=== PATIENT | female | born 1985 | race Two or more races ===

== ENCOUNTER 2022-11-09 21:18 | Inpatient (IN) | payer OTHER ==
[~2022-11-09] VITALS: Ht 165.1 cm; Wt 70.9 kg
[2022-11-09] MEDS ORDERED: KETOROLAC TROMETHAMINE 30 MG/ML VIAL IVP ONE (22:30)
[2022-11-09] MEDS ORDERED: SODIUM CHLORIDE 0.9% 1,000 ML IV ONE ×2 (22:30→23:45)
[2022-11-09 22:57] LABS: BASOPHILS % (AUTO) 1.1 % (0.0-2.0); EOSINOPHILS % (AUTO) 1.4 % (1.0-6.0); HEMATOCRIT 32.4 % (36-46); HEMOGLOBIN 10.6 g/dL (12.0-16.0); LYMPHOCYTES # (AUTO) 1.9 K/uL (1.0-4.8); LYMPHOCYTES % (AUTO) 32.2 % (22.0-44.0); MEAN CORPUSCULAR HEMOGLOBIN 26.7 pg (26.0-34.0); MEAN CORPUSCULAR HGB CONC 32.6 G/dL (31.0-37.0); MEAN CORPUSCULAR VOLUME 82 fL (80-100); MONOCYTES # (AUTO) 0.5 K/uL (0.1-1.0); MONOCYTES % (AUTO) 8.7 % (2.0-9.0); NEUTROPHILS # (AUTO) 3.4 K/uL (1.8-7.7); NEUTROPHILS % (AUTO) 56.6 % (40.0-70.0); PLATELET COUNT (AUTO) 267 K/uL (150-450); RED BLOOD CELL COUNT(AUTO) 3.97 MIL/uL (4.00-5.20); RED CELL DISTRIBUTION WIDTH 15.7 % (11.5-14.5)
[2022-11-09 23:07] LABS: ANION GAP 3 mmol/L (8-16); CALCIUM, TOTAL 8.5 mg/dL (8.8-10.5); CARBON DIOXIDE 31 mmol/L (22-29); CHLORIDE 108 mmol/L (98-107); GLOMERULAR FILTR. RATE CALC > 60 mL/min (>60); GLUCOSE,RANDOM 158 mg/dL (70-110); POTASSIUM 3.7 mmol/L (3.5-5.1); SODIUM SERUM 142 mmol/L (136-145); UREA NITROGEN, BLOOD 10 mg/dL (7-18)
[2022-11-09 23:22] LABS: ALANINE AMINOTRANSFERASE 16 U/L (12-78); ALKALINE PHOSPHATASE 64 U/L (46-116); ASPARTATE AMINOTRANSFERASE 18 U/L (15-37); BILIRUBIN,TOTAL 0.2 mg/dL (0.1-1.0); HCG,QUANTITATIVE < 1 mIU/mL (0-6); LIPASE 61 U/L (73-393); TOTAL PROTEIN, SERUM 6.5 g/dL (6.4-8.2)
[2022-11-10 00:55] LABS: APPEARANCE,URINE CLEAR (CLEAR); BILIRUBIN,URINE NEGATIVE (NEGATIVE); GLUCOSE, URINE (UA) NEGATIVE (NEGATIVE); KETONES,URINE NEGATIVE (NEGATIVE); LEUKOCYTE ESTERASE ,URINE NEGATIVE (NEGATIVE); NITRATE,URINE NEGATIVE (NEGATIVE); OCCULT BLOOD,URINE NEGATIVE (NEGATIVE); PROTEIN,URINE NEGATIVE (NEGATIVE); SPECIFIC GRAVITIY, URINE 1.014 (1.003-1.030); UROBILINOGEN,URINE <=1.0 mg/dL (<=1.0)
[2022-11-10 01:01] LABS: AMPHET/METH SCREEN,URINE POSITIVE (NEGATIVE); BARBITURATE SCREEN, URINE POSITIVE (NEGATIVE); BENZODIAZEPINES SCREEN,URINE NEGATIVE (NEGATIVE); CANNABINOID SCREEN,URINE NEGATIVE (NEGATIVE); COCAINE SCREEN,URINE NEGATIVE (NEGATIVE); METHADONE SCREEN, URINE NEGATIVE (NEGATIVE); OPIATE SCREEN,URINE NEGATIVE (NEGATIVE); PHENCYCLIDINE SCREEN,URINE NEGATIVE (NEGATIVE)
[2022-11-10] MEDS ORDERED: ACETAMINOPHEN 325 MG TABLET PO PRN (01:30)
[2022-11-10] MEDS ORDERED: ONDANSETRON HCL 4 MG/2 ML VIAL IVP PRN (01:30)
[2022-11-10 02:19] LABS: COVID AG,FIA SOURCE NASAL SWAB
[2022-11-10 02:53] VITALS: BP 113/68
[2022-11-10] MEDS ORDERED: MAGNESIUM HYDROXIDE SUSPENSION 30 ML UDCUP PO PRN (08:45)
[2022-11-10] MEDS ORDERED: ZOLPIDEM TARTRATE 5 MG TABLET PO PRN (08:45)
[2022-11-10] MEDS: FAMOTIDINE 20 MG TABLET PO SCH (09:59)
[2022-11-10 10:03] VITALS: BP 106/62
[2022-11-10] MEDS: ACETAMINOPHEN 325 MG TABLET PO PRN (16:52)
[2022-11-10 18:30] VITALS: BP 102/62
[2022-11-10 20:01] VITALS: BP 110/65
[2022-11-11 04:26] VITALS: BP 119/74
[2022-11-11] MEDS: ACETAMINOPHEN 325 MG TABLET PO PRN ×4 (04:34→22:30)
[2022-11-11 07:55] VITALS: BP 111/65
[2022-11-11] MEDS: FAMOTIDINE 20 MG TABLET PO SCH (08:19)
[2022-11-11] MEDS: ONDANSETRON HCL 4 MG/2 ML VIAL IVP PRN ×2 (12:40→18:17)
[2022-11-11 20:06] VITALS: BP 118/61
[2022-11-11] MEDS ORDERED: ALPRAZolam 0.5 MG TABLET PO ONE (22:15)
[2022-11-12] MEDS: ONDANSETRON HCL 4 MG/2 ML VIAL IVP PRN (01:28)
[2022-11-12 04:20] VITALS: BP 117/73
[2022-11-12 07:32] VITALS: BP 114/71
[2022-11-12] MEDS: FAMOTIDINE 20 MG TABLET PO SCH (08:50)
[2022-11-12] MEDS: ACETAMINOPHEN 325 MG TABLET PO PRN (13:12)
== END 2022-11-12 15:50 | DRG 897 ==
LOC: EMS 21:22 → 6S 11-10 01:57
PROVIDERS: ADMIT Internal Medicine; ATTEND Internal Medicine
DX: F15.13 Other stimulant abuse with withdrawal (principal); F13.239 Sedative, hypnotic or anxiolytic dependence with withdrawal, unspecified; K80.20 Calculus of gallbladder without cholecystitis without obstruction; Z20.822 Contact with and (suspected) exposure to COVID-19; F41.9 Anxiety disorder, unspecified; I73.00 Raynaud's syndrome without gangrene; Z85.43 Personal history of malignant neoplasm of ovary
CPT/HCPCS: 74176; 80053; 80307; 81003; 83690; 84702; 85025; 99285; J1885; J2405; J7030